=== PATIENT | male | born 1985 | race African-American/Black ===

== ENCOUNTER 2023-10-11 17:08 | Emergency (ER) | payer OTHER ==
[~2023-10-11] VITALS: Ht 162.6 cm; Wt 74.5 kg
[2023-10-11] MEDS ORDERED: TRAZ-252 PO (17:57)
[2023-10-11 18:05] LABS: HEMATOCRIT 43.5 % (42.0-52.0); HEMOGLOBIN 14.5 g/dl (13.5-17.5); MEAN CORPUSCULAR HGB CONC 33.3 g/dl (32.0-36.5); MEAN CORPUSCULAR VOLUME 92.9 fl (80.0-96.0); PLATELET COUNT, AUTOMATED 187 10^3/uL (150-450); RED BLOOD COUNT 4.68 10^6/uL (4.30-6.10); WHITE BLOOD COUNT 6.3 10^3/uL (4.0-10.0)
[2023-10-11 18:23] LABS: ETHYL ALCOHOL (ETHANOL) < 0.003 % (0.000-0.010)
[2023-10-11 18:24] LABS: SALICYLATE LEVEL < 3.0 MG/DL (<30)
[2023-10-11 18:25] LABS: ALBUMIN 4.2 G/DL (3.2-5.2); ALKALINE PHOSPHATASE 69 U/L (46-116); ALT/SGPT 26 U/L (7.0-40); AST/SGOT 22 U/L (<34); BILIRUBIN,DIRECT 0.2 MG/DL (<0.4); BILIRUBIN,TOTAL 0.7 MG/DL (0.3-1.2); BLOOD UREA NITROGEN 12 MG/DL (9-23); CALCIUM LEVEL 9.4 MG/DL (8.5-10.1); CARBON DIOXIDE LEVEL 31 MMOL/L (20-31); CHLORIDE LEVEL 104 MMOL/L (98-107); CREATININE FOR GFR 1.03 MG/DL (0.70-1.30); GLOMERULAR FILTRATION RATE > 60.0 (>60); GLUCOSE, FASTING 87 MG/DL (60-100); SODIUM LEVEL 139 MMOL/L (136-145); TOTAL PROTEIN 7.3 G/DL (5.7-8.2)
[2023-10-11 18:27] LABS: THYROID STIMULATING HORMONE 3.538 uIU/ML (0.55-4.78)
[2023-10-11 18:35] LABS: AMPHETAMINES LEVEL URINE NEGATIVE (NEGATIVE); BARBITURATES URINE NEGATIVE (NEGATIVE); BENZODIAZEPINES URINE NEGATIVE (NEGATIVE); COCAINE METABOLITE URINE NEGATIVE (NEGATIVE)
[2023-10-11 18:36] LABS: CANNABINOIDS URINE NEGATIVE (NEGATIVE); METHADONE URINE NEGATIVE (NEGATIVE); OPIATES URINE NEGATIVE (NEGATIVE); PHENCYCLIDINE URINE NEGATIVE (NEGATIVE)
[2023-10-11] MEDS ORDERED: HOME MED LIST COMPLETE! XX SCH (20:30)
[2023-10-12 10:35] LABS: APPEARANCE, URINE CLEAR (CLEAR); BACTERIA, URINE AUTO NEGATIVE (NEGATIVE); BILIRUBIN, URINE AUTO NEGATIVE (NEGATIVE); BLOOD, URINE BLOOD NEGATIVE (NEGATIVE); COLOR, URINE YELLOW (YELLOW); GLUCOSE, URINE (UA) AUTO NEGATIVE (NEGATIVE); KETONE, URINE AUTO NEGATIVE (NEGATIVE); LEUKOCYTE ESTERASE, URINE AUTO TRACE (NEGATIVE); MUCUS, URINE SMALL (NEGATIVE); NITRITE, URINE AUTO NEGATIVE (NEGATIVE); PROTEIN, URINE AUTO NEGATIVE (NEGATIVE); RBC, URINE AUTO 1 /HPF (0-3); SPECIFIC GRAVITY URINE AUTO 1.018 (1.002-1.035); SQUAMOUS EPITHELIAL CELL UR AU 0 /HPF (0-6); UROBILINOGEN, URINE AUTO 0.2 mg/dL (0.0-2.0); WBC, URINE AUTO 3 /HPF (0-3)
[2023-10-12] MEDS: traZODone 50 MG TAB PO SCH (21:05)
[2023-10-12 21:49] VITALS: BP 128/65; TEMP 98.2; O2SAT 100
== END 2023-10-12 21:50 | disposition short-term general hospital (02) ==
LOC: M ED 17:08
DX: F32.A Depression, unspecified (principal); R45.851 Suicidal ideations; Z79.899 Other long term (current) drug therapy

== ENCOUNTER 2025-02-03 09:21 | Emergency (ER) | payer OTHER ==
[~2025-02-03] VITALS: Ht 162.6 cm; Wt 80.7 kg
[~2025-02-03 09:21] MED LIST: TRAZ-252 PO
[2025-02-03 11:28] VITALS: BP 132/73; TEMP 98.2; O2SAT 100
== END 2025-02-03 11:36 | disposition home or self-care (01) ==
LOC: M ED 09:21
DX: G56.22 Lesion of ulnar nerve, left upper limb (principal); F41.9 Anxiety disorder, unspecified; F32.A Depression, unspecified; Z79.899 Other long term (current) drug therapy

== ENCOUNTER 2025-04-11 06:38 | Day surgery (SDC) | payer OTHER ==
[~2025-04-11] VITALS: Ht 162.6 cm; Wt 78.6 kg
[~2025-04-11 06:38] MED LIST changes: +LEXA1TAB PO
[2025-04-11] MEDS ORDERED: ACETAMINOPHEN 1000MG/100ML IV BAG As Ordered ONE (06:49)
[2025-04-11] MEDS ORDERED: ONDANSETRON 4MG 2ML VIAL As Ordered ONE (06:56)
[2025-04-11] MEDS ORDERED: dexAMETHasone 4 MG/ML 1 ML VIAL As Ordered ONE (06:56)
[2025-04-11] MEDS ORDERED: LIDOCAINE 2% 100 MG/5 ML SDV (FOR ANES.) As Ordered ONE (06:56)
[2025-04-11] MEDS ORDERED: KETOROLAC 30 MG/ML 1 ML VIAL As Ordered ONE (06:56)
[2025-04-11] MEDS ORDERED: LR 1,000 ML IV SCH (07:15)
[2025-04-11] MEDS: MIDAZOLAM INJ 2 MG/2 ML VIAL IV PRN (08:03)
[2025-04-11] MEDS: dexAMETHasone 10 MG/1 ML VIAL PRES.FREE PN ONE (08:06)
[2025-04-11] MEDS: ROPIvacaine 0.5% 30ML VIAL PN ONE (08:06)
[2025-04-11] MEDS ORDERED: PHENYLephrine 500MCG 5ML (100MCG/ML) SYRINGE As Ordered ONE (09:03)
[2025-04-11] MEDS ORDERED: MORPHINE 2 MG/ML 1 ML VIAL IV PRN (11:10)
[2025-04-11] MEDS ORDERED: ONDANSETRON 4MG 2ML VIAL IV PRN (11:10)
[2025-04-11] MEDS ORDERED: PERCOCET PO (11:19)
[2025-04-11 12:26] VITALS: BP 111/60; TEMP 97.2; O2SAT 100
== END 2025-04-11 12:59 | disposition home or self-care (01) ==
LOC: M SDC 06:38
PROVIDERS: ATTEND Orthopaedic Surgery Hand Surgery
DX: S63.512A Sprain of carpal joint of left wrist, initial encounter (principal); G43.909 Migraine, unspecified, not intractable, without status migrainosus; F41.9 Anxiety disorder, unspecified; Z79.899 Other long term (current) drug therapy; X58.XXXA Exposure to other specified factors, initial encounter; Y93.9 Activity, unspecified; Y92.9 Unspecified place or not applicable
CPT/HCPCS: 25320; 76000; C1713; J0131; J0665; J0690; J1100; J1885; J2250; J2371; J2405; J2795; J3010

== ENCOUNTER → 2025-04-19 | Outpatient (CLI) | payer OTHER ==
[~2025-04-19] MED LIST changes: +PERCOCET PO
== END ==
LOC: M SOG 07:21
PROVIDERS: ATTEND Physician Assistant
DX: S63.392A Traumatic rupture of other ligament of left wrist, initial encounter (principal); W18.30XA Fall on same level, unspecified, initial encounter; Y92.009 Unspecified place in unspecified non-institutional (private) residence as the place of occurrence of the external cause

== ENCOUNTER → 2025-05-09 | Outpatient (CLI) | payer OTHER | LOC: M SOG 07:18 | PROVIDERS: ATTEND Physician Assistant | DX: S63.392D Traumatic rupture of other ligament of left wrist, subsequent encounter (principal) ==

== ENCOUNTER → 2025-05-18 | Outpatient (CLI) | payer OTHER | LOC: M SOG 15:00 | PROVIDERS: ATTEND Orthopaedic Surgery Hand Surgery | DX: M25.332 Other instability, left wrist (principal) ==

== ENCOUNTER → 2025-05-22 | Outpatient (REF) | payer OTHER | LOC: M LAB REF 16:53 | PROVIDERS: ATTEND Physician Assistant | DX: L03.114 Cellulitis of left upper limb (principal) ==

== ENCOUNTER → 2025-06-06 | Outpatient (CLI) | payer OTHER ==
[~2025-06-06] MED LIST changes: +CEPH500C PO; +MELATONIN 50 MG PO; +RA M10TA PO
[2025-06-06 14:29] LABS: BASO # 0.0 10^3/uL (0.0-0.2); BASO % 0.2 % (0.0-1.0); EOS # 0.2 10^3/uL (0.0-0.5); EOS % 2.4 % (0.0-3.0); LYMPH # 1.9 10^3/uL (1.5-5.0); LYMPH % 19.9 % (24.0-44.0); MONO # 1.0 10^3/uL (0.0-0.8); MONO % 11.0 % (2.0-8.0); NEUTROPHILS # 6.1 10^3/uL (1.5-8.5); NEUTROPHILS % 64.2 % (36.0-66.0); PLATELET COUNT, AUTOMATED 247 10^3/uL (150-450)
== END ==
LOC: M LAB 13:49
PROVIDERS: ATTEND Orthopaedic Surgery Hand Surgery
DX: L03.114 Cellulitis of left upper limb (principal)

== ENCOUNTER → 2025-06-07 | Outpatient (CLI) | payer OTHER ==
[~2025-06-07] MED LIST changes: +DOXY-440 PO
== END ==
LOC: M SOG 07:23
PROVIDERS: ATTEND Physician Assistant
DX: M25.332 Other instability, left wrist (principal)

== ENCOUNTER 2025-06-08 09:25 | Inpatient (IN) | payer OTHER ==
[~2025-06-08] VITALS: Ht 162.6 cm; Wt 76.4 kg
[~2025-06-08 09:25] MED LIST changes: -CEPH500C PO; -DOXY-440 PO; -MELATONIN 50 MG PO; -RA M10TA PO
[2025-06-08 10:41] LABS: BASO # 0.0 10^3/uL (0.0-0.2); BASO % 0.2 % (0.0-1.0); EOS # 0.2 10^3/uL (0.0-0.5); EOS % 2.3 % (0.0-3.0); LYMPH # 1.7 10^3/uL (1.5-5.0); LYMPH % 17.8 % (24.0-44.0); MONO # 1.2 10^3/uL (0.0-0.8); MONO % 12.6 % (2.0-8.0); NEUTROPHILS # 6.2 10^3/uL (1.5-8.5); NEUTROPHILS % 66.8 % (36.0-66.0); PLATELET COUNT, AUTOMATED 223 10^3/uL (150-450)
[2025-06-08] MEDS: NS (Normal Saline) 0.9% 1,000 ML IV ONE (10:45)
[2025-06-08] MEDS: PIPERACILLIN/TAZOBACTAM SOD 3.375 GM in DEXTROSE 5% (D5W) ADV/MINI-BAG 50 ML IV ONE (10:52)
[2025-06-08 11:09] LABS: C REACTIVE PROTEIN QUANTITATIV 6.14 MG/DL (<1.0); CALCIUM LEVEL 8.9 MG/DL (8.5-10.1); CARBON DIOXIDE LEVEL 31 MMOL/L (20-31); CHLORIDE LEVEL 101 MMOL/L (98-107); CREATININE FOR GFR 1.07 MG/DL (0.70-1.30); GLOMERULAR FILTRATION RATE > 90.0 (>60); POTASSIUM SERUM 3.9 MMOL/L (3.5-5.1); SODIUM LEVEL 140 MMOL/L (136-145)
[2025-06-08] MEDS: KETOROLAC 30 MG/ML 1 ML VIAL IV SCH (12:17)
[2025-06-08] MEDS: VANCOMYCIN HCL 1,500 MG, VIAL MATE ADAPTER 1 EACH in NS 500 ML IV ONE (12:17)
[2025-06-08 13:33] VITALS: BP 129/63; TEMP 98.6; O2SAT 98
[2025-06-08] MEDS: ACETAMINOPHEN 500 MG TAB PO SCH (13:57)
[2025-06-08] MEDS ORDERED: MELATONIN 50 MG PO (15:07)
[2025-06-08] MEDS ORDERED: CEPH500C PO (15:07)
[2025-06-08] MEDS ORDERED: HOME MED LIST COMPLETE! XX SCH (15:10)
[2025-06-08] MEDS ORDERED: VANCOMYCIN HCL 1,000 MG in IV FLUID PLACE HOLDER 1 EA IV SCH (15:30)
[2025-06-08] MEDS: PIPERACILLIN/TAZOBACTAM SOD 3.375 GM in DEXTROSE 5% (D5W) ADV/MINI-BAG 50 ML IV SCH (16:40)
[2025-06-08] MEDS: VANCOMYCIN HCL 1,000 MG, VIAL MATE ADAPTER 1 EACH in NS 250 ML IV SCH (18:30)
[2025-06-08 19:34] VITALS: BP 119/56; TEMP 98.7; O2SAT 97
[2025-06-08] MEDS ORDERED: RA M10TA PO (23:00)
[2025-06-09 04:14] VITALS: BP 118/58; TEMP 98.1; O2SAT 98
[2025-06-09 06:12] LABS: PLATELET COUNT, AUTOMATED 216 10^3/uL (150-450)
[2025-06-09 06:42] LABS: C REACTIVE PROTEIN QUANTITATIV 4.17 MG/DL (<1.0)
[2025-06-09 09:35] LABS: CREATININE FOR GFR 1.05 MG/DL (0.70-1.30); GLOMERULAR FILTRATION RATE > 90.0 (>60)
[2025-06-09 12:00] VITALS: BP 117/88; TEMP 98.3; O2SAT 98
[2025-06-09 19:29] VITALS: BP 135/58; TEMP 97.4; O2SAT 100
[2025-06-10 04:41] VITALS: BP 114/62; TEMP 97.9; O2SAT 98
[2025-06-10 06:01] LABS: PLATELET COUNT, AUTOMATED 250 10^3/uL (150-450)
[2025-06-10 06:23] LABS: CALCIUM LEVEL 8.9 MG/DL (8.5-10.1); CARBON DIOXIDE LEVEL 27 MMOL/L (20-31); CHLORIDE LEVEL 107 MMOL/L (98-107); CREATININE FOR GFR 1.08 MG/DL (0.70-1.30); GLOMERULAR FILTRATION RATE > 90.0 (>60); POTASSIUM SERUM 4.1 MMOL/L (3.5-5.1); SODIUM LEVEL 143 MMOL/L (136-145)
[2025-06-10 12:00] VITALS: BP 120/64; TEMP 98.2; O2SAT 98
[2025-06-10 20:00] VITALS: BP 130/75; TEMP 98.4; O2SAT 99
[2025-06-11 04:00] VITALS: BP 118/68; TEMP 98.1; O2SAT 98
[2025-06-11 05:54] LABS: PLATELET COUNT, AUTOMATED 251 10^3/uL (150-450)
[2025-06-11] MEDS ORDERED: DOXY-440 PO (09:36)
[2025-06-11 12:00] VITALS: BP 132/65; TEMP 98.2; O2SAT 100
== END 2025-06-11 13:38 | disposition home or self-care (01) | DRG 603 ==
LOC: M ED 09:25 → M ED INP 10:49 → M MS4PR 13:27
PROVIDERS: ADMIT Internal Medicine Nephrology; ATTEND Internal Medicine Nephrology
DX: L03.113 Cellulitis of right upper limb (principal); T81.41XA Infection following a procedure, superficial incisional surgical site, initial encounter; L08.9 Local infection of the skin and subcutaneous tissue, unspecified; F41.9 Anxiety disorder, unspecified; Z79.899 Other long term (current) drug therapy

== ENCOUNTER → 2025-07-13 | Outpatient (CLI) | payer OTHER ==
[~2025-07-13] MED LIST changes: +CEPH500C PO; +DOXY-440 PO; +MELA10TA30 PO; +MELATONIN 50 MG PO
== END ==
LOC: M SOG 12:53
PROVIDERS: ATTEND Orthopaedic Surgery Hand Surgery
DX: M25.332 Other instability, left wrist (principal)